=== PATIENT | female | born 1985 | race African-American/Black ===

== ENCOUNTER 2018-07-19 00:04 | Emergency (ER) | payer SELFPAY ==
[~2018-07-19] VITALS: Ht 172.7 cm; Wt 65.3 kg
[2018-07-19 00:05] VITALS: BP 122/72
[2018-07-19] MEDS ORDERED: BUPIVACAINE 0.5 % PF 150 MG/30 ML VIAL ONE (02:28)
[2018-07-19] MEDS ORDERED: BUPIVACAINE 0.5 % PF 150 MG/30 ML VIAL IJ ONE (02:30)
[2018-07-19] MEDS ORDERED: HYDROCODONE/APAP 5/325MG 1 EACH TABLET ONE (03:45)
[2018-07-19] MEDS ORDERED: HYDROCODONE/APAP 5/325MG 1 EACH TABLET PO ONE (04:00)
== END 2018-07-19 03:53 | disposition home or self-care (01) ==
LOC: ER 00:06
DX: L03.011 Cellulitis of right finger (principal)
CPT/HCPCS: 26011; 73140; 99284; A4606; A6402; A6407; J3490; Z7610